=== PATIENT | female | born 1980 | race Caucasian/White ===

== ENCOUNTER 2025-04-28 14:05 | Emergency (ER) | payer OTHER, SELFPAY ==
[2025-04-28 14:12] VITALS: BP 171/120
[2025-04-28 14:37] LABS: Hematocrit 44.2 % (37.0-47.0); Hemoglobin 15.8 g/dL (12.0-16.0); Mean Corp Hgb Conc. 35.7 g/dL (33.0-37.0); Mean Corpuscular Volume 86.5 fL (81.0-99.0); Nucleated Red Blood Cells % 0 %; Platelet Count 336 10^3/uL (130-400); Red Cell Dist. Width 12.6 % (11.5-14.5)
[2025-04-28 15:04] LABS: ALT (SGPT) 16 U/L (0-35); AST (SGOT) 20 U/L (14-36); Albumin 4.5 g/dl (3.5-5.0); Alkaline Phosphatase 61 U/L (38-126); Blood Urea Nitrogen 13 mg/dl (7-17); Calcium 10.8 mg/dl (8.4-10.2); Carbon Dioxide 26 mmol/L (22-30); Chloride 105 mmol/L (98-107); Glucose 95 mg/dl (70-99); Lipase 62 U/L (23-300); Potassium 4.4 mmol/L (3.5-5.1); Sodium 138 mmol/L (135-145); Total Protein 7.6 g/dl (6.3-8.2); eGFR > 60.00
--- NOTE | 2025-04-28 15:33 | ED.GENMED ---
History of Present Illness
General
Chief Complaint: Abdominal Symptoms
Time Seen by Provider: 04/28/25 15:23
History of Present Illness
History of Present Illness:
44 female presents to the emergency department for evaluation of bright red bloody stools/diarrhea beginning yesterday. Notes that she did not eat at a restaurant but had a similar condition as a family member who was not symptomatic. Began with
severe abdominal pain last night and diarrhea but the diarrhea turned bloody today. Has not had any bowel movements in the past 2 hours. Reports intense colicky lower abdominal cramping pain. No fevers or chills. Denies nausea, vomiting. Prior
abdominal surgical history includes salpingectomy x 2
Review of Systems
Review of Systems
Allergies reviewed?: Yes
All Other Systems: ROS reviewed and negative except as documented in HPI and ROS
Phy Exam
Physical Exam
Physical Exam:
GEN: Well appearing, NAD, WDWN
HEENT: Oral mucosa moist, no scleral icterus
Cardiac: Tachycardic, regular
Lung: No respiratory distress, no tachypnea, lungs clear to auscultation bilaterally
Abdomen: Soft, diffuse mild tenderness however significant left lower quadrant tenderness
MSK: No gross deformity or injuries
Skin: Good color, no pallor or jaundice, no rashes
Neuro: AO x3, moves all extremities freely
Psych: Calm, cooperative
Course
Orders/Labs/Results
Orders:
Orders
04/28/25 14:20
Complete Blood Count/With Diff Urgent
Comprehensive Metabolic Panel Urgent
HCG, Serum Qualitative Screen Urgent
Comment: ADD ON
Lipase Urgent
04/28/25 15:32
Add On- LAB Urgent
Tests Added?: HCG qual
CT Abd/Pel (IV only)-DH only Urgent
Comment:
Reason For Exam: bloody diarrhea/abd pain
0.9% Sodium Chloride 1000 ml [Nss] 1,000 ml IV BOLUS
Ketorolac [Toradol] 15 mg IV NOW STA
04/28/25 15:49
Lactic Acid Q4H
Comment: CANCEL 2nd LACTIC ACID IF 1st LACTIC ACID IS LESS THAN 2
Abnormal Lab Results
04/28/25
14:20
WBC 16.4 H 10^3/uL
(4.8-10.8)
Abs Immat Gran (auto) 0.1 H 10^3/uL
(0-0.05)
Absolute Neuts (auto) 12.4 H 10^3/uL
(1.4-6.5)
Absolute Monos (auto) 1.1 H 10^3/uL
(0.1-0.6)
Lymphocytes % 17.2 L %
(20.5-51.1)
Calcium 10.8 H mg/dl
(8.4-10.2)
04/28/25 14:20
04/28/25 14:20
Vital Signs
Initial and Last Documented VS:
Initial Vital Signs
Temp Pulse Resp Pulse Ox
97.9 F 128 22 99
04/28/25 14:10 04/28/25 14:10 04/28/25 14:10 04/28/25 14:10
Last Documented Vital Signs
Temp Pulse Resp BP Pulse Ox
97.9 F 87 16 156/94 100
04/28/25 14:10 04/28/25 17:01 04/28/25 17:01 04/28/25 17:01 04/28/25 17:01
MDM/Problems Addressed
MDM/Problems Addressed:
To continue significant degree of colitis on imaging we opted for empiric antibiotics particularly given that the patient reports having an egg condition at a restaurant the day before making Salmonella more likely. Although she is otherwise well,
I feel it is appropriate to treat empirically. Pt is preferential to home treatment with PO abx as opposed to IV abx
*Pulse Oximetry
SaO2: 99
Patient hypoxic: no
*Critical Care Note
Total Time (30-74mins, 75-104mins- exclusive of procedures): Not Applicable
ED Attending Note
-
Portions of this chart may have been created with voice recognition software.� Occasional wrong word or��sound alike� substitutions may have occurred due to the inherent limitations of voice recognition software.
Discharge Plan
Departure
Patient Disposition: Home (Routine Discharge)
Date of Disposition: 04/28/25
Time of Disposition: 17:20
Patient with high blood pressure during this ER visit?: No
Discharge Problem:
Acute hemorrhagic colitis
Instructions: Colitis (DC)
Prescriptions:
New
azithromycin 500 mg tablet
500 mg PO DAILY 5 Days Qty: 5 0RF
Interventions
Interventions:
*General Assessment Last Done: 04/28/25 14:13
*Neglect/Abuse Screening Last Done: 04/28/25 14:13
*ED COVID-19 Vaccine History Last Done: 04/28/25 14:13
*ED Influenza Vaccine History Last Done: 04/28/25 14:13
[facility] Fall Risk Assessment Tool Last Done: 04/28/25 17:01
*Risk Screen - Suicide (C-SSRS) Last Done: 04/28/25 14:13
*Nursing Disposition Last Done: 04/28/25 17:45
[facility] Assessment Last Done: 04/28/25 15:46
ED- Cardiac Assessment Last Done: 04/28/25 17:01
ED- Pulmonary Assessment Last Done: 04/28/25 17:01
Discharge Date and Time
Discharge Date/Time: 04/28/25 17:45
Print Language: [place]URUN[place]
[2025-04-28] MEDS: NSS 1000 IV (15:47)
[2025-04-28] MEDS: TORADOL 15 MG IV (15:47)
[2025-04-28 16:19] LABS: HCG, Serum Qualitative Screen Negative
[2025-04-28 17:01] VITALS: BP 156/94
== END 2025-04-28 17:45 | disposition home or self-care (01) ==
LOC: EMR 14:05
PROVIDERS: Emergency Medicine; Physician Assistant; EMERGENCY PHYSICIAN Emergency Medicine
DX: K52.9 Noninfective gastroenteritis and colitis, unspecified (principal)
CPT/HCPCS: 99284; 96374; 96361; 74177; 80053; 83605; 83690; 84703; 85025; Q9967